=== PATIENT | female | born 1955 | race Caucasian/White ===

== ENCOUNTER 2020-10-27 14:43 | Emergency (ER) | payer BC ==
[~2020-10-27] VITALS: Ht 167.6 cm; Wt 59.0 kg
[2020-10-27] MEDS ORDERED: LISINOPRIL-HCT1 EAC2 PO (14:53)
[2020-10-27] MEDS ORDERED: CLONIDINE HCL0.1 M1 PO (14:53)
[2020-10-27] MEDS ORDERED: LOVASTATIN40 MG PO (14:53)
[2020-10-27] MEDS ORDERED: KEPPRA1000 MG PO (14:53)
[2020-10-27] MEDS ORDERED: DICLOFENAC SODI75 MG PO (14:53)
[2020-10-27] MEDS ORDERED: MAGNESIUM250 M1 PO (14:54)
[2020-10-27] MEDS ORDERED: VITAMIN B COMP1 EACH PO (14:54)
[2020-10-27] MEDS ORDERED: ASA81BEC PO (14:54)
[2020-10-27] MEDS ORDERED: DEPO-ESTRAD5 MG/1 ML IM (14:55)
[2020-10-27] MEDS ORDERED: LIDOCAINE 2%2 %/5 GM TOP (14:56)
[2020-10-27] MEDS ORDERED: DEPO-TESTO100 MG/1 M IM (14:56)
[2020-10-27] MEDS ORDERED: PREVACID30 MG PO (14:57)
[2020-10-27 15:18] LABS: ABSOLUTE NEUTROPHILS 10.2 thou/uL (1.4-8.2); BASOPHILS 0.5 % (0.0-2.0); EOSINOPHILS 3.3 % (0.0-3.0); HEMATOCRIT 43.3 % (37.0-47.0); HEMOGLOBIN 14.1 gm/dL (12.0-15.0); LYMPHOCYTES 15.1 % (24.0-44.0); MCH 31.3 pg (26.0-34.0); MCHC 32.6 g/dL (28.0-37.0); MCV 95.8 fL (80.0-100.0); MONOCYTES 4.3 % (1.0-8.0); PLATELET COUNT 345 thou/uL (150-400); POLYS 76.8 % (36.0-66.0); RBC 4.52 mil/uL (4.20-5.00); WBC 13.2 thou/uL (4.0-11.0)
[2020-10-27 15:27] LABS: CALCIUM 9.1 mg/dL (8.5-10.1); CREATININE 1.5 mg/dL (0.6-1.0)
[2020-10-27] MEDS ORDERED: PREDNISONE 20 M20 MG PO (17:43)
[2020-10-27] MEDS ORDERED: EPIPEN 2-P0.3 MG/0.3 IM (17:47)
[2020-10-27 18:22] VITALS: BP 136/95
--- NOTE | 2020-10-28 09:04 | EKG ---
[place] [address] [address] [facility] [employer] [place] [address] ELECTROCARDIOGRAM REPORT Name: IVONNE STROUD Room #: DEP JOON Harris#: [id number] Admission: 10/27/20 Attend Phys: Discharge: 10/27/20 Date of : 59 Report #: [id number] [facility] Test Date: 2020-10-27 Test Time: 16:05:04 Pat Name: IVONNE STROUD Department: Room: Gender: F [employer]: JOSE : 1955 Requested By: Sherice Babcock Order Number: [id number] MD: Jose Carlos Conner Measurements Intervals Carrier Rate: 94 P: 0 NC: 176 QRS: 221 QRSD: 103 T: 60 QT: 398 QTc: 498 Interpretive Statements Sinus rhythm Inferior infarct, old Anteroseptal infarct, age indeterminate No previous ECG available for comparison Electronically Signed On 10-28-2020 9:04:01 CDT by Jose Carlos Conner [email or web address] <ELECTRONICALLY SIGNED> By: Jose Carlos Conner MD, [facility] 10/28/20 0904 1605 1605 Jose Carlos Conner MD, FACC /EPI
== END 2020-10-27 18:28 | disposition home or self-care (01) ==
LOC: ER 14:43
PROVIDERS: Emergency Medicine
DX: L29.9 Pruritus, unspecified (principal); T78.40XA Allergy, unspecified, initial encounter; R06.02 Shortness of breath; R42 Dizziness and giddiness; I10 Essential (primary) hypertension; J45.909 Unspecified asthma, uncomplicated; Z79.899 Other long term (current) drug therapy; Z79.82 Long term (current) use of aspirin; Y92.89 Other specified places as the place of occurrence of the external cause